=== PATIENT | male | born 1990 | race Caucasian/White ===

== ENCOUNTER 2020-01-24 06:03 | Day surgery (SDC) | payer BC ==
[2020-01-24] MEDS ORDERED: Levofloxacin 500 mg/D5W 100 ml Premix Bag ONE (06:20)
[2020-01-24] MEDS ORDERED: Midazolam HCl 2 mg/2 ml Vial ONE (06:35)
[2020-01-24] MEDS ORDERED: Fentanyl 100 MCG/2 ML VIAL ONE ×2 (06:35→08:15)
[2020-01-24] MEDS ORDERED: Iothalamate Meglumine 60% 50 ML VIAL FS ONE (07:04)
--- NOTE | 2020-01-24 07:53 | RAD ---
KUB: 01/24/2020 COMPARISON: None HISTORY: Right renal stone FINDINGS: There is a faint calcification in the right hemipelvis measuring 3 mm, which may represent a stone in the region of the distal right ureter. 2 round calcifications within the left hemipelvis suggest phleboliths. No upper abdominal calcifications are noted. IMPRESSION: Possible 3 mm stone in the region of the distal right ureter.
[2020-01-24] MEDS ORDERED: Oxybutynin 5 MG TAB ONE (08:22)
[2020-01-24] MEDS ORDERED: Phenazopyridine HCl 97.5 MG TABLET ONE (08:22)
--- NOTE | 2020-01-24 08:35 | RAD ---
Retrograde pyelogram 21 views: 01/24/2020 HISTORY: 29-year-old male with ureteral calculus FINDINGS: The tiny focal calcification in the right hemipelvis on the KUB of 1 hour ago is difficult to visuali ze on the lower image resolution fluoroscopic precontrast images. There is injection of contrast into nondilated distal half of right ureter. No filling defect. Subsequent image with wire ascending the right ureter, upper portion in nondilated right renal collecting system, partially excluded from [id number]-lvde shows questionable round tiny calculus in lower right ureter, versus artifact. Nex t multiple images demonstrate looping of superior portion of the guidewire in right renal upper pole collecting system. Finally, at a right ureteral stent is placed and deployed, with upper curl an d lower cortical in satisfactory positions. Post deployment image does not demonstrate ureteral calculus. IMPRESSION: 1. No right-sided hydroureteronephrosis. 2. Right ureteral stent placement.
[2020-01-24] MEDS ORDERED: Morphine 2 MG/ML VIAL ONE (09:14)
[2020-01-24] MEDS ORDERED: Promethazine HCl 25 MG/ML VIAL ONE (09:14)
[2020-01-24] MEDS ORDERED: traMADol HCl 50 MG TAB ONE (09:34)
[2020-01-24] MEDS ORDERED: Ondansetron PF 4 MG/2 ML Vial ONE (10:11)
[2020-01-24] MEDS ORDERED: PROPOFOL 200 MG/20 ML VIAL ONE (10:11)
[2020-01-24] MEDS ORDERED: Dexamethasone 20 MG/5 ML VIAL ONE (10:11)
[2020-01-24] MEDS ORDERED: Lidocaine 1% PF 5 ML VIAL ONE (10:11)
--- NOTE | 2020-01-24 10:25 | OP ---
DATE OF PROCEDURE: 01/24/2020 PREOPERATIVE DIAGNOSES: 1. A 29-year-old male with right distal ureteral calculi with non-progression. 2. Left nonobstructing 3 x 2 mm renal calculi. POSTOPERATIVE DIAGNOSES: 1. A 29-year-old male with right distal ureteral calculi with non-progression. 2. Left nonobstructing 3 x 2 mm renal calculi. PROCEDURES PERFORMED: Cystoscopy, right retrograde pyelogram, balloon dilatation of the distal ureter, basket extraction of distal ureteral calculi, 6 x 30 double-J ureteral stent with stent string taped to penis, and retrograde pyelogram. ANESTHESIA: LMA. COMPLICATIONS: None apparent. DISPOSITION: Recovery room in stable condition. SPECIMEN: Chemical analysis for stone. 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 Subsequent workup demonstrated his symptoms of frequency, urgency, pelvic pain were due to a right distal ureteral calculi measuring 3 mm. Given its small size, I informed him regarding medical expulsion therapy. With further followup, he had persistent stone discomfort, given his location in the [place], he desired to proceed with definitive treatment. Risks and complications of the procedure were reviewed with him in detail including, but not limited to, bleeding, pain, infection, injury to adjacent organs, urosepsis, and ureteral, renal, kidney injury. Possible secondary procedure was reviewed. DESCRIPTION OF PROCEDURE: After an informed consent was signed, the patient was taken to the operating room, placed in the dorsal lithotomy position with the genital area prepped and draped in the usual surgical sterile fashion. A 21- Jamaican cystoscope was utilized for cystoscopy, which demonstrated normal anterior urethra with a subtle bulbar stricture nonobstructing very early, not warranting treatment. At this time, the scope was advanced into the bladder, which demonstrated no evidence of passed stone within the bladder. The UOs were in normal orthotopic position. We intubated the right UO with an open-ended catheter and a gentle retrograde pyelogram was performed. There was mild dilatation of the distal ureter, however, stone nidus was difficult to appreciate. A 0.035 Sensor wire was placed into the right upper pole and using a [employer] 12-Jamaican 4-cm balloon dilator, I dilated the intramural ureter. This was performed uneventfully and subsequently we passed the rigid ureteroscope without significant issues and the stone was seen in the distal ureter. Basket extraction of the stone was obtained with a Zero Tip Nitinol basket and the stone retrieved atraumatically. He tolerated the procedure well. The stone was sent for chemical analysis. With the stone cleared, we placed a 6 x 30 double-J ureteral stent. Stent string was left in situ as there was endoscopic clearance. Bladder was emptied and the stent string was taped to the patient's pubic symphysis with Tegaderm. He was discharged with ciprofloxacin for 7 days, Azo p.r.n., tramadol 50 mg #30, Ditropan 5 mg one p.o. q.8 hours p.r.n. He has Flomax at home. He will follow up with me next for stent pull on [place]michel. Job ID: [id number] [id number]
== END 2020-01-24 10:30 | disposition home or self-care (01) ==
LOC: SDC 06:03
PROVIDERS: ATTEND Urology
PROC: 0TC38ZZ Extirpation of Matter from Right Kidney Pelvis, Via Natural or Artificial Opening Endoscopic (ICD-10-PCS; principal; 2020-01-24)
PROC: 0T768DZ Dilation of Right Ureter with Intraluminal Device, Via Natural or Artificial Opening Endoscopic (ICD-10-PCS; principal; 2020-01-24)
PROC: 0TC68ZZ Extirpation of Matter from Right Ureter, Via Natural or Artificial Opening Endoscopic (ICD-10-PCS; principal; 2020-01-24)
DX: N20.2 Calculus of kidney with calculus of ureter (principal)
CPT/HCPCS: 74018; 74420; 82365; 88300; J1100; J1956; J2250; J2270; J2405; J2550; J2704; J3010